=== PATIENT | female | born 1980 | race Caucasian/White ===

== ENCOUNTER → 2016-07-25 | Day surgery (SDC) | payer OTHER ==
[2016-07-20 11:14] VITALS: BP 128/74
[2016-07-20 12:19] LABS: BASO % 0.4 % (0.0-1.0); EOS # 0.1 10*3/uL (0.0-0.4); EOS % 0.8 % (1.0-4.0); HEMATOCRIT 43.6 % (37.0-47.0); HEMOGLOBIN 14.1 g/dl (12.0-16.0); IG # 0.1 10*3/uL (0.0-0.1); LYMPH # 2.1 10*3/uL (1.3-4.4); LYMPH % 18.5 % (27.0-41.0); MEAN CELL VOLUME 93.6 fl (81.0-99.0); MEAN CORPUSCULAR HGB 30.3 pg (27.0-31.0); MEAN CORPUSCULAR HGB CONC 32.3 g/dl (33.0-37.0); MEAN PLATELET VOLUME 11.3 fl (9.6-12.3); MONO # 0.9 10*3/uL (0.1-1.0); MONO % 8.4 % (3.0-9.0); NEUT % 71.5 % (47.0-73.0); PLATELET COUNT AUTOMATED 267 10*3/uL (130-400); RED BLOOD COUNT 4.66 10*6/uL (4.10-5.10); RED CELL DISTRI WIDTH 13.6 % (0-14.5); WHITE BLOOD COUNT 11.1 10*3/uL (4.8-10.8)
[2016-07-20 12:50] LABS: PROTHROMBIN TIME 10.5 SECONDS (9.0-12.4)
[2016-07-25] VITALS (8 sets, daily range): BP systolic 126–159; BP diastolic 78–94
[~2016-07-25] MED LIST: ALPRAZOLAM0.5 M3 PO; CILOXAN 5 ML5 M1 OT; FLUOXETINE HYDR20 M1 PO; OXYCODONE-ACET500 ML PO
--- NOTE | ~2016-07-25 | O ---
[place], [place] OPERATIVE NOTE NAME: STEVE ESPINO UNIT #: [id number] ROOM: DOCTOR: TAM HUMPHREY MD BIRTHDATE: [birth year] DOS: 07/25/2016 PREOPERATIVE DIAGNOSES: Chronic otitis media with effusion and chronic tonsillitis. POSTOPERATIVE DIAGNOSES: Chronic otitis media with effusion and chronic tonsillitis. OPERATION: BMT and Bilateral tonsillectomy. SURGEON: Dr. Humphrey. ANESTHESIA: General endotracheal. OPERATIVE FINDINGS AND PROCEDURE: The patient was taken to the operating room for BMT and tonsillectomy. Following induction of general endotracheal anesthesia, the patient was positioned supine on the OR table and draped in the standard fashion for ear surgery and tonsillectomy. The surgical microscope was brought into the operative field. The right ear was examined. Myringotomy was performed. Standard Paulino tympanostomy tube was inserted, and topical Ciprofloxacin drops were instilled. Next, the left ear was examined. Left myringotomy was performed. Standard Paulino tympanostomy tube was inserted, and topical Ciprofloxacin drops were instilled. The mouth was exposed using McIvor retractor. Bilateral tonsillectomy was performed with electrocautery. Minor bleeding was controlled with cautery. At the end of the case, all instrument and sponge counts were correct. Gastric contents were decompressed. The patient was awakened, extubated and transported to PACU in satisfactory condition. TAM HUMPHREY MD CM:OPRECORD:OPERATIVE NOTE [id number] TAM HUMPHREY MD 07/26/16 1153 interface
== END | disposition home or self-care (01) ==
LOC: SDC 07-20 11:00
PROVIDERS: Specialist
DX: J35.01 Chronic tonsillitis (principal); H65.493 Other chronic nonsuppurative otitis media, bilateral; F41.9 Anxiety disorder, unspecified; F17.210 Nicotine dependence, cigarettes, uncomplicated